=== PATIENT | male | born 1975 | race Caucasian/White ===

== ENCOUNTER 2016-12-17 03:46 | Emergency (ER) | payer OTHER ==
--- NOTE | 2016-12-17 05:43 | ED ORDER SUMMARY ---
..... Patient: ROBERTO SILVER OrderSheet [facility] VisitID: [id number] [place] [address] 41y, M Registration Date/Time: 12/17/2016 ORDER SHEET Weight: 149.6 kg (stated) Allergies: Naproxen, Soma, Robaxin GENERAL ORDERS: CBC w Diff Urgent (04:15 12/17/2016 Dennis Gómez) (Ack 4:16 CHagerty ER Semiconductor Processing Technician) (4:16 CHagerty ER Semiconductor Processing Technician) CMP Urgent (04:15 12/17/2016 Dennis Gómez) (Ack 4:16 CHagerty ER Semiconductor Processing Technician) (4:16 CHagerty ER Semiconductor Processing Technician) UA-Culture if indicated Urgent (04:15 12/17/2016 Dennis Gómez) (Ack 4:16 CHagerty ER Semiconductor Processing Technician) (4:16 CHagerty ER Semiconductor Processing Technician) Lipase Urgent (04:15 12/17/2016 Dennis Gómez) (Ack 4:16 CHagerty ER Semiconductor Processing Technician) (4:16 CHagerty ER Semiconductor Processing Technician) MEDICATION ORDERS: Imodium PO 2 mg (after zofran) (04:15 12/17/2016 Dennis Gómez) (Ack 4:21 JQuivey R.N.) (4:26 JQuivey R.N.) Tylenol PO 650 mg (NOW) (04:27 12/17/2016 JQuivey R.N. verbal order read back to Dennis Gómez) (4:27 JQuivey R.N.) IV FLUIDS: IV NS : initial bolus 1000 mL (1000 mL/hr), then none - for X1 (NOW) (04:14 12/17/2016 Dennis Gómez) (Ack 4:15 JQuivey R.N.) (4:20 JQuivey R.N.) Zofran IV 4 mg (NOW) (04:15 12/17/2016 Dennis Gómez) (Ack 4:15 JQuivey R.N.) (4:21 JQuivey R.N.) Morphine IV 4 mg (HIGH ALERT MEDICATION, NOW) (05:12 12/17/2016 Dennis Gómez) (5:19 Kalina Lowry) ORDER SHEET NOTES: [Electronically signed by Romel Ngo R.N. (05:54 12/17/2016)] [Electronically signed by John Rosenbaum Dr. (21:56 12/23/2016)] [Electronically locked/signed by Romel Ngo R.N. (05:54 12/17/2016)]
--- NOTE | 2016-12-17 05:43 | ED NURSING NOTES ---
Clinical Report - Nurs[facility] [address] [place] [address] 12/17/2016 3:47 Patient: ROBERTO SILVER TRIAGE Triage time 03:57. Acuity: LEVEL 3. Chief Complaint: ABDOMINAL PAIN, NAUSEA, VOMITING and DIARRHEA and FEVER. 04:04. Alert. --04:04 Romel Ngo R.N. 03:57 12/17/16. BP: 173/98. HR: 95. RR: 19. O2 saturation: 98% on room air. Temp: 98.9 F (oral). Pain level now: 03/22. --04:04 Romel Ngo R.N. Weight: 149.6 kg stated. Height/Length: 74 inches Per Patient. BMI: 42.4. --04:03 Romel Ngo R.N. Medications Hydrochlorothiazide Oral 20mg , daily. --04:02 Romel Ngo R.N. Medication/allergy information source: the patient. --04:04 Romel Ngo R.N. Allergies Naproxen. (Swelling) Soma. --04:02 Romel Ngo R.N. Robaxin. --05:47 Romel Ngo R.N. The following entry was struck and corrected by Romel Ngo R.N., 05:46 (12/17/16) Reason for correction - other(correction). <<STRICKEN ENTRY-- Naproxen. --04:02 Romel Ngo R.N. --END STRIKE>>. History Arrived by private vehicle. Historian: patient. Accompanied by family. Primary physician (Barb). Onset. (4 days ago). 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 PAST MEDICAL HX: Immunizations: up-to-date. SOCIAL HX: Current some days light tobacco smoker- less than 1/2 a pack per day (Chews). History of drug use: marijuana. (daily). No alcohol use. No recent travel. No infectious disease exposure. ABUSE ASSESSMENT: No report of abuse. FALL RISK ASSESSMENT: Fall risk assessment completed. No fall risk identified. NUTRITIONAL RISK ASSESSMENT: The nutritional risk assessment revealed no deficiencies. FUNCTIONAL ASSESSMENT: Functional assessment: no impairments noted. LEARNING NEEDS ASSESSMENT: The learning needs assessment revealed no barriers. SKIN INTEGRITY ASSESSMENT: Skin integrity risk assessment completed. No skin integrity risk identified. --04:04 Romel Ngo R.N. The patient has had a cough. ( Sinus pressure). --04:06 Romel Ngo R.N. PROBLEMS: Diverticulitis. Hypertension. Intervertebral Disc Disease. Low back pain. --04:03 Roeml Ngo R.N. ADDITIONAL SURGERIES: no known surgeries. Interventions ID band on patient. To treatment room. --04:04 Romel Ngo R.N. PHYSICAL ASSESSMENT 04:00. Ambulatory to room. Patient gowned. GENERAL / NEURO / PSYCH: Alert. Oriented X 4. HEENT: Mucous membranes are pink. RESPIRATORY: Respirations not labored. SKIN: Skin is warm and dry. --04:05 Romel Ngo R.N. NURSING PROGRESS NOTES 03:57. Patient ID band checked for patient name and birthdate: patient confirmed. Clean catch urine collected with return of yellow-colored clear urine; sample sent to lab for urinalysis. Specimen labeled in the presence of the patient. --04:00 Romel Ngo R.N. 04:00. Head of bed elevated. Two patient identifiers checked. Call light placed in reach. Bed placed in lowest position. Brakes of bed on. Patient ready for evaluation- chart flagged. --04:05 Romel Ngo R.N. 04:10 12/17/2016 Site #1 started via IV in the right hand with an 20g angiocath, with aseptic technique and good blood return; one attempt. Blood drawn: rainbow set. Labeled in the presence of the patient and sent to the lab. Saline lock flushed with 10 mL saline. --04:13 Romel Ngo R.N. 04:16 12/17/2016 Started bag #1 1000 mL IV Fluids IV NS (Saline); at 1000 mL/hr over 1 hour(s) via site #1 via IV pump. IV patency established. IV site checked: no pain, redness, or swelling. IV flushed thoroughly pre- and post-medication administration. --04:20 Romel Ngo R.N. 04:18 12/17/2016 Zofran (Ondansetron HCl) IVP 4 mg given over 2 minute(s) via site #1. Allergies verified and confirmed 5 rights. IV patency established. IV site checked: no pain, redness, or swelling. IV flushed thoroughly pre- and post-medication administration. --04:21 Romel Ngo R.N. 04:26 12/17/2016 Imodium (Loperamide HCl) PO 2 mg given. Allergies verified and confirmed 5 rights. --04:26 Romel Ngo R.N. 04:27 12/17/2016 Tylenol (Acetaminophen) PO 650 mg given. Allergies verified and confirmed 5 rights. --04:27 Romel Ngo R.N. 05:19 12/17/2016 Morphine IVP 4 mg given. via site #1. Allergies verified, confirmed 5 rights and sedative warning given to the patient. IV patency established. IV site checked: no pain, redness, or swelling. IV flushed thoroughly pre- and post-medication administration. --05:19 Kvng Matias R.N. 05:30 12/17/2016 IV Fluids IV NS Discontinued: bag #1 infused. Total amount infused: 1000 mL. IV patency established. IV site checked: no pain, redness, or swelling. IV flushed thoroughly. --05:49 Romel Ngo R.N. 05:52. The patient is calm and resting quietly. Overall patient status is improved- he states feels better. SKIN: Skin is warm and dry. Skin color within normal limits. --05:54 Romel Ngo R.N. DISPOSITION / DISCHARGE Departure time: 05:53. Condition at departure: stable. No learning barriers present. Discharge instructions provided and reviewed with the patient. Reviewed medication(s) side effects, precautions, dosing and course information. Prescription(s) given to the patient. Patient verbalized understanding. Written instructions provided in Ugandan. The patient was discharged home and accompanied by chapter relations administrator. He left the Emergency Department ambulatory and via private vehicle. Muffle Worker driving. FALL RISK ASSESSMENT: Fall risk assessment completed. No fall risk identified. --05:53 Romel Ngo R.N. 05:47 12/17/16. BP: 157/99. HR: 85. RR: 16. O2 saturation: 96% on room air. Pain level now: 11/22. --05:53 Romel Ngo R.N. 05:50 12/17/2016 Site #1 removed upon discharge. Catheter intact. Bandage applied. --05:54 Romel Ngo R.N. Locked/Released at 12/17/2016 5:55 by Romel Ngo R.N.
--- NOTE | 2016-12-17 05:43 | ED ORDER SUMMARY ---
..... Patient: ROBERTO SILVER OrderSheet [facility] VisitID: [id number] [place] [address] 41y, M Registration Date/Time: 12/17/2016 ORDER SHEET Weight: 149.6 kg (stated) Allergies: Naproxen, Soma, Robaxin GENERAL ORDERS: CBC w Diff Urgent (04:15 12/17/2016 Dennis Gómez) (Ack 4:16 CHagerty ER Genetics Physician) (4:16 CHagerty ER Genetics Physician) CMP Urgent (04:15 12/17/2016 Dennis Gómez) (Ack 4:16 CHagerty ER Genetics Physician) (4:16 CHagerty ER Genetics Physician) UA-Culture if indicated Urgent (04:15 12/17/2016 Dennis Gómez) (Ack 4:16 CHagerty ER Genetics Physician) (4:16 CHagerty ER Genetics Physician) Lipase Urgent (04:15 12/17/2016 Dennis Gómez) (Ack 4:16 CHagerty ER Genetics Physician) (4:16 CHagerty ER Genetics Physician) MEDICATION ORDERS: Imodium PO 2 mg (after zofran) (04:15 12/17/2016 Dennis Gómez) (Ack 4:21 JQuivey R.N.) (4:26 JQuivey R.N.) Tylenol PO 650 mg (NOW) (04:27 12/17/2016 JQuivey R.N. verbal order read back to Dennis Gómez) (4:27 JQuivey R.N.) IV FLUIDS: IV NS : initial bolus 1000 mL (1000 mL/hr), then none - for X1 (NOW) (04:14 12/17/2016 Dennis Gómez) (Ack 4:15 JQuivey R.N.) (4:20 JQuivey R.N.) Zofran IV 4 mg (NOW) (04:15 12/17/2016 Dennis Gómez) (Ack 4:15 JQuivey R.N.) (4:21 JQuivey R.N.) Morphine IV 4 mg (HIGH ALERT MEDICATION, NOW) (05:12 12/17/2016 Dennis Gómez) (5:19 Kalina Lowry) ORDER SHEET NOTES: [Electronically signed by Romel Ngo R.N. (05:54 12/17/2016)] [Electronically signed by John Rosenbaum Dr. (21:56 12/23/2016)] [Electronically locked/signed by Romel Ngo R.N. (05:54 12/17/2016)]
--- NOTE | 2016-12-17 05:43 | ED CLINICAL REPORT ---
Clinical Report - Physicians/[facility] [address] [place] [place] [address] 12/17/2016 3:47 Patient: ROBERTO SILVER Arrived- By private vehicle. Historian- patient. HISTORY OF PRESENT ILLNESS Chief Complaint: VOMITING and DIARRHEA. This started past 4 days and is still present (staying the same). It was abrupt in onset and has been intermittent but is not gone now. No recent travel. He has had nausea, vomiting and diarrhea. No black stools, bloody stools, abdominal pain, flank pain or history of possible bad food exposure. No known contact with a sick individual. Has not recently been camping or on antibiotics. The illness is described as moderate. Similar symptoms previously: None. Recent medical care: Not recently seen/assessed. REVIEW OF SYSTEMS The patient has had fever. No skin rash. All systems otherwise negative, except as recorded above. PAST HISTORY See nurses notes. Additional Surgeries: no known surgeries. Medications: Hydrochlorothiazide Oral 20mg , daily. Allergies: Naproxen. (Swelling) Robaxin. Soma. SOCIAL HISTORY Smoker- current status unknown. History of drug use: marijuana. No alcohol use. Is a local resident. FAMILY HISTORY (no family history of bowel problems). ADDITIONAL NOTES The nursing notes have been reviewed. PHYSICAL EXAM Vital Signs: 12/17/2016 03:57 BP: 173/98. HR: 95. RR: 19. O2 saturation: 98%. Temp: 98.9 F. Pain level now: 5/10. Hypertensive. Oxygen saturation normal. Appearance: Alert. Oriented X3. No acute distress. Eyes: Pupils equal, round and reactive to light. Eyes normal inspection. No scleral icterus. ENT: Ears normal. Nose normal. Pharynx normal. Neck: Normal inspection. Neck supple. CVS: Normal heart rate and rhythm. Heart sounds normal. Pulses normal. Respiratory: No respiratory distress. Breath sounds normal. No rales, rhonchi or wheezes. Abdomen: Soft and nontender. Abnormal bowel sounds: hyperactive. No organomegaly. No mass. Back: Normal inspection. Skin: Skin warm and dry. Normal skin color. No rash. Normal skin turgor. Extremities: Extremities exhibit normal ROM. No lower extremity edema. Neuro: Oriented X 3. No motor deficit. No sensory deficit. LABS, X-RAYS, AND EKG Laboratory Tests: UA-Culture if indicated: (MEAGHAN: 12/17/2016 04:00) ( MsgRcvd 12/17/2016 05:16) Final results Test Result Flag Units (Reference) URINE COLOR YELLOW URINE APPEARANCE CLEAR URINE GLUCOSE NEGATIVE (NEGATIVE) URINE BILIRUBIN NEGATIVE (NEGATIVE) URINE KETONE TRACE (NEGATIVE) URINE SPECIFIC GRAVITY 1.020 (1.010-1.030) URINE PH 6.0 (5.0-8.0) URINE PROTEIN NEGATIVE (NEGATIVE) URINE UROBILINOGEN 0.2 EU/dL (0.2-1.0) URINE NITRITE NEGATIVE (NEGATIVE) URINE BLOOD NEGATIVE (NEGATIVE) URINE LEUK ESTERASE NEGATIVE (NEGATIVE) URINE RBC 0-1 rbc/hpf (0-1) URINE WBC 0-1 wbc/hpf (0-1) URINE EPITHELIAL CELLS 0-1 EPI/hpf (0-5) URINE BACTERIA NONE SEEN (NONE SEEN) URINE COMMENT CULT NOT INDICATED URINE CULTURES ARE SET-UP BASED ON THE FOLLOWING CRITERIA:POSITIVE NITRITEPOSITIVE LEUKOCYTE ESTERASEGREATER THAN 10 WHITE BLOOD CELLSMODERATE (2+) OR GREATER BACTERIA CBC w Diff: (MEAGHAN: 12/17/2016 04:00) ( MsgRcvd 12/17/2016 04:49) Final results Test Result Flag Units (Reference) WHITE BLOOD COUNT 6.8 K/uL (4.5-11.5) RED BLOOD COUNT 5.45 M/uL (4.50-5.90) HEMOGLOBIN 16.3 gm/dL (13.5-17.5) HEMATOCRIT 48.1 % (41.0-53.0) MEAN CELL VOLUME 88 fL (80-100) MEAN CORPUSCULAR HGB 30 pg (26-34) MEAN CORPUSCULAR HGB CONC 34 g/dL (31-37) RED CELL DISTRIBUTION WIDTH 13.1 % (11.6-14.8) PLATELET COUNT 243 K/uL (150-400) NEUTROPHIL % 66.9 % (50-75) LYMPH % 17.1 L % (25-40) MONO % 15.3 H % (3-14) EOSINOPHIL % 0.4 % (0-4) BASOPHIL % 0.3 % (0-2) CMP: (MEAGHAN: 12/17/2016 04:00) ( MsgRcvd 12/17/2016 05:02) Final results Test Result Flag Units (Reference) GLUCOSE 108 mg/dL (70-110) BUN 12 mg/dL (7-18) CREATININE 1.0 mg/dL (0.6-1.3) Estimated GFR >60 mL/min Estimated GFR- >60 mL/min Note: Persistent reduction over 3 months in eGFR<60 mL/min/1.73 m2 defines CKD. Patients with eGFR values>=60 mL/min/1.73 m2 may also have CKD if evidence ofpersistent proteinuria. Additional information may be foundat www.kidney.org. SODIUM 137 mmol/L (136-145) POTASSIUM 3.6 mmol/L (3.5-5.1) CHLORIDE 100 mmol/L (98-107) CARBON DIOXIDE 24 mmol/L (21-32) CALCIUM 8.8 mg/dL (8.5-10.1) TOTAL PROTEIN 8.2 g/dL (6.4-8.2) ALBUMIN 4.0 g/dL (3.3-5.0) BILIRUBIN, TOTAL 1.1 H mg/dL (0.0-1.0) ALKALINE PHOSPHATASE 87 U/L (46-116) AST (SGOT) 39 H U/L (15-37) ALT (SGPT) 62 U/L (12-78) LIPASE 129 U/L (73-393) . PROGRESS AND PROCEDURES Course of Care: The patient is a pleasant and cooperative 41 yo male with no pertinent past medical history presenting for evaluation of n/v/d. Patient resting in bed, no acute distress. No significant risk factors for C. diff. Will evaluate patient with liver enzymes, UA, lytes, and CBC. Patient agreeable to the treatment and plan. Medication for symptoms provided. Work up shows patient with very mild elevation in bili. Reports he knows about this and is normal for him. No other findings. Patient without diarrhea while here. Unable to obtain stool sample. Patient with benign repeat examination. Do not feel imaging needed. Risk outweighs the benefits at this time given benign exam and normal lab workup. Discussed with patient work up, diagnosis, home care, follow up, and return precautions. All questions answered. Patient expressed understanding of these instructions and was agreeable to them. Disposition: Discharged. Condition: good. CLINICAL IMPRESSION Vomiting with nausea. Diarrhea (acute). Acute generalized abdominal pain. 12/17/2016 03:57 BP: 173/98. HR: 95. RR: 19. O2 saturation: 98%. Temp: 98.9 F. Pain level now: 03/22. Hypertensive. Oxygen saturation normal. Mild dehydration (acute). INSTRUCTIONS Warnings: GENERAL WARNINGS: Return or contact your physician immediately if your condition worsens or changes unexpectedly, if not improving as expected, or if other problems arise. SPECIFICALLY, return if you develop pain, fever, the inability to keep fluids down, blood in vomitus, blood in diarrhea, fainting or lightheadedness. Your Current Medications: CONTINUE TAKING THE FOLLOWING MEDICATIONS: Hydrochlorothiazide Oral : 20mg daily. Prescription Medications: Zofran (orally disintegrating tablets) 4 mg: take 1 orally every 8 hours as needed for nausea and vomiting. Dispense ten (10). No refill. Substitution is permissible. Motrin 600 mg tablets: take 1 tablet orally every 6 hours as needed for pain, stiffness or swelling. Dispense thirty (30). No refill. Substitution is permissible. OTC Medications: Imodium (available over the counter): take according to label instructions. Tylenol 500 mg (available over the counter): take 1 orally every 6 hours as needed for fever or pain. Dispense thirty (30). No refill. Substitution is permissible. Follow-up: Return to the emergency department as needed. Follow up with your doctor in three days. Reason for referral: recheck today's concerns. Summary of care provided to patient via paper. Screening today revealed the patient's blood pressure to be in the hypertensive range. Blood pressure screening was not performed during this visit because the patient has an active diagnosis of hypertension. The patient should follow up with a primary care provider for blood pressure management. Understanding of the discharge instructions verbalized by patient. Follow-up with: [facility], , , [address], , [place], [address] Follow up in three days. Reason for referral: recheck today's concerns if you do not have a primary care doctor, contact this office. Summary of care provided to patient via paper. (Electronically signed by John Rosenbaum Dr. 12/23/2016 21:56)
--- NOTE | 2016-12-17 05:43 | ED NURSING NOTES ---
Clinical Report - Nurses [facility] [address] [place] [address] 12/17/2016 3:47 Patient: ROBERTO SILVER TRIAGE Triage time 03:57. Acuity: LEVEL 3. Chief Complaint: ABDOMINAL PAIN, NAUSEA, VOMITING and DIARRHEA and FEVER. 04:04. Alert. --04:04 Romel Ngo R.N. 03:57 12/17/16. BP: 173/98. HR: 95. RR: 19. O2 saturation: 98% on room air. Temp: 98.9 F (oral). Pain level now: 03/22. --04:04 Romel Ngo R.N. Weight: 149.6 kg stated. Height/Length: 74 inches Per Patient. BMI: 42.4. --04:03 Romel Ngo R.N. Medications Hydrochlorothiazide Oral 20mg , daily. --04:02 Romel Ngo R.N. Medication/allergy information source: the patient. --04:04 Romel Ngo R.N. Allergies Naproxen. (Swelling) Soma. --04:02 Romel Ngo R.N. Robaxin. --05:47 Romel Ngo R.N. The following entry was struck and corrected by Romel Ngo R.N., 05:46 (12/17/16) Reason for correction - other(correction). <<STRICKEN ENTRY-- Naproxen. --04:02 Romel Ngo R.N. --END STRIKE>>. History Arrived by private vehicle. Historian: patient. Accompanied by family. Primary physician (Barb). Onset. (4 days ago). 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 PAST MEDICAL HX: Immunizations: up-to-date. SOCIAL HX: Current some days light tobacco smoker- less than 1/2 a pack per day (Chews). History of drug use: marijuana. (daily). No alcohol use. No recent travel. No infectious disease exposure. ABUSE ASSESSMENT: No report of abuse. FALL RISK ASSESSMENT: Fall risk assessment completed. No fall risk identified. NUTRITIONAL RISK ASSESSMENT: The nutritional risk assessment revealed no deficiencies. FUNCTIONAL ASSESSMENT: Functional assessment: no impairments noted. LEARNING NEEDS ASSESSMENT: The learning needs assessment revealed no barriers. SKIN INTEGRITY ASSESSMENT: Skin integrity risk assessment completed. No skin integrity risk identified. --04:04 Romel Ngo R.N. The patient has had a cough. ( Sinus pressure). --04:06 Romel Ngo R.N. PROBLEMS: Diverticulitis. Hypertension. Intervertebral Disc Disease. Low back pain. --04:03 Romel Ngo R.N. ADDITIONAL SURGERIES: no known surgeries. Interventions ID band on patient. To treatment room. --04:04 Romel Ngo R.N. PHYSICAL ASSESSMENT 04:00. Ambulatory to room. Patient gowned. GENERAL / NEURO / PSYCH: Alert. Oriented X 4. HEENT: Mucous membranes are pink. RESPIRATORY: Respirations not labored. SKIN: Skin is warm and dry. --04:05 Romel Ngo R.N. NURSING PROGRESS NOTES 03:57. Patient ID band checked for patient name and birthdate: patient confirmed. Clean catch urine collected with return of yellow-colored clear urine; sample sent to lab for urinalysis. Specimen labeled in the presence of the patient. --04:00 Romel Ngo R.N. 04:00. Head of bed elevated. Two patient identifiers checked. Call light placed in reach. Bed placed in lowest position. Brakes of bed on. Patient ready for evaluation- chart flagged. --04:05 Romel Ngo R.N. 04:10 12/17/2016 Site #1 started via IV in the right hand with an 20g angiocath, with aseptic technique and good blood return; one attempt. Blood drawn: rainbow set. Labeled in the presence of the patient and sent to the lab. Saline lock flushed with 10 mL saline. --04:13 Romel Ngo R.N. 04:16 12/17/2016 Started bag #1 1000 mL IV Fluids IV NS (Saline); at 1000 mL/hr over 1 hour(s) via site #1 via IV pump. IV patency established. IV site checked: no pain, redness, or swelling. IV flushed thoroughly pre- and post-medication administration. --04:20 Romel Ngo R.N. 04:18 12/17/2016 Zofran (Ondansetron HCl) IVP 4 mg given over 2 minute(s) via site #1. Allergies verified and confirmed 5 rights. IV patency established. IV site checked: no pain, redness, or swelling. IV flushed thoroughly pre- and post-medication administration. --04:21 Romel Ngo R.N. 04:26 12/17/2016 Imodium (Loperamide HCl) PO 2 mg given. Allergies verified and confirmed 5 rights. --04:26 Romel Ngo R.N. 04:27 12/17/2016 Tylenol (Acetaminophen) PO 650 mg given. Allergies verified and confirmed 5 rights. --04:27 Romel Ngo R.N. 05:19 12/17/2016 Morphine IVP 4 mg given. via site #1. Allergies verified, confirmed 5 rights and sedative warning given to the patient. IV patency established. IV site checked: no pain, redness, or swelling. IV flushed thoroughly pre- and post-medication administration. --05:19 Kvng Matias R.N. 05:30 12/17/2016 IV Fluids IV NS Discontinued: bag #1 infused. Total amount infused: 1000 mL. IV patency established. IV site checked: no pain, redness, or swelling. IV flushed thoroughly. --05:49 Romel Ngo R.N. 05:52. The patient is calm and resting quietly. Overall patient status is improved- he states feels better. SKIN: Skin is warm and dry. Skin color within normal limits. --05:54 Romel Ngo R.N. DISPOSITION / DISCHARGE Departure time: 05:53. Condition at departure: stable. No learning barriers present. Discharge instructions provided and reviewed with the patient. Reviewed medication(s) side effects, precautions, dosing and course information. Prescription(s) given to the patient. Patient verbalized understanding. Written instructions provided in Beninese. The patient was discharged home and accompanied by cage shift manager. He left the Emergency Department ambulatory and via private vehicle. Transmission And Coordination Engineer driving. FALL RISK ASSESSMENT: Fall risk assessment completed. No fall risk identified. --05:53 Romel Ngo R.N. 05:47 12/17/16. BP: 157/99. HR: 85. RR: 16. O2 saturation: 96% on room air. Pain level now: 11/22. --05:53 Romel Ngo R.N. 05:50 12/17/2016 Site #1 removed upon discharge. Catheter intact. Bandage applied. --05:54 Romel Ngo R.N. Locked/Released at 12/17/2016 5:55 by Romel Ngo R.N.
--- NOTE | 2016-12-23 21:56 | ED MED RECONCILIATION SUMMARY ---
Patient: ROBERTO SILVER Medication Reconciliation Report [facility] VisitID: [id number] [address] [place] [place] [address] 41y, M Registration Date/Time: 12/17/2016 Weight: 149.6 kg Height/Length: 74 in. BMI: 42.4 ALLERGIES: Naproxen, Robaxin, Soma The patient's Home Medications are listed below: CONTINUE TAKING THE FOLLOWING MEDICATIONS: Hydrochlorothiazide Oral 20mg , daily The source(s) of the original Home Medication information: patient The following Medications were given to the patient in the Emergency Department: IV NS IV Fluids bolus 0, then 1000 mL/hr, administered: 12/17/2016 4:16:00 AM Zofran [IVP] IVP 4 mg, administered: 12/17/2016 4:18:00 AM Imodium [PO] PO 2 mg, administered: 12/17/2016 4:26:00 AM Tylenol [PO] PO 650 mg, administered: 12/17/2016 4:27:00 AM Morphine [IVP] IVP 4 mg, administered: 12/17/2016 5:19:00 AM The following Medications were prescribed to the patient: Zofran (orally disintegrating tablets) 4 mg: take 1 orally every 8 hours as needed for nausea and vomiting. Dispense ten (10). No refill. Substitution is permissible. -- John Rosenbaum Dr. Imodium (available over the counter): take according to label instructions. -- John Rosenbaum Dr. Tylenol 500 mg (available over the counter): take 1 orally every 6 hours as needed for fever or pain. Dispense thirty (30). No refill. Substitution is permissible. -- John Rosenbaum Dr. Motrin 600 mg tablets: take 1 tablet orally every 6 hours as needed for pain, stiffness or swelling. Dispense thirty (30). No refill. Substitution is permissible. -- John Rosenbaum Dr.
--- NOTE | 2016-12-23 21:56 | ED MAR SUMMARY ---
..... Medication Administration Record [facility] [address] [place] [address] Patient: ROBERTO SILVER Visit ID: [id number] 41y, M Weight: 149.6 kg Height/Length: 74 in BMI: 42.4 ALLERGIES: Soma, Robaxin, Naproxen Start 04:16 12/17/2016 Romel Ngo R.N., Stop 05:30 12/17/2016 Romel Ngo R.N. Medication Administered: IV NS (SALINE), Dose: IV Fluids over 1 hour(s), Rate: 1000 mL/hr, Dispensed: 1000 mL bag, Site: #1 right hand. Medication Ordered: IV NS : initial bolus 1000 mL (1000 mL/hr), then none - for X1 (NOW). Given 04:18 12/17/2016 Romel Ngo R.N. Medication Administered: ZOFRAN [IVP] (ONDANSETRON HCL), Dose: 4 mg IVP over 2 minute(s), Site: #1 right hand. Medication Ordered: Zofran IV 4 mg (NOW). Given 04:26 12/17/2016 Romel Ngo R.N. Medication Administered: IMODIUM [PO] (LOPERAMIDE HCL), Dose: 2 mg PO. Medication Ordered: Imodium PO 2 mg (after zofran). Given 04:27 12/17/2016 Romel Ngo R.N. Medication Administered: TYLENOL [PO] (ACETAMINOPHEN), Dose: 650 mg PO. Medication Ordered: Tylenol PO 650 mg (NOW). Given 05:19 12/17/2016 Kvng Matias R.N. Medication Administered: MORPHINE [IVP], Dose: 4 mg IVP, Site: #1 right hand. Medication Ordered: Morphine IV 4 mg (HIGH ALERT MEDICATION, NOW).
--- NOTE | 2016-12-23 21:56 | ED MAR SUMMARY ---
..... Medication Administration Record [facility] [address] [place] [address] Patient: ROBERTO SILVER Visit ID: [id number] 41y, M Weight: 149.6 kg Height/Length: 74 in BMI: 42.4 ALLERGIES: Soma, Robaxin, Naproxen Start 04:16 12/17/2016 Romel Ngo R.N., Stop 05:30 12/17/2016 Romel Ngo R.N. Medication Administered: IV NS (SALINE), Dose: IV Fluids over 1 hour(s), Rate: 1000 mL/hr, Dispensed: 1000 mL bag, Site: #1 right hand. Medication Ordered: IV NS : initial bolus 1000 mL (1000 mL/hr), then none - for X1 (NOW). Given 04:18 12/17/2016 Romel Ngo R.N. Medication Administered: ZOFRAN [IVP] (ONDANSETRON HCL), Dose: 4 mg IVP over 2 minute(s), Site: #1 right hand. Medication Ordered: Zofran IV 4 mg (NOW). Given 04:26 12/17/2016 Romel Ngo R.N. Medication Administered: IMODIUM [PO] (LOPERAMIDE HCL), Dose: 2 mg PO. Medication Ordered: Imodium PO 2 mg (after zofran). Given 04:27 12/17/2016 Romel Ngo R.N. Medication Administered: TYLENOL [PO] (ACETAMINOPHEN), Dose: 650 mg PO. Medication Ordered: Tylenol PO 650 mg (NOW). Given 05:19 12/17/2016 Kvng Matias R.N. Medication Administered: MORPHINE [IVP], Dose: 4 mg IVP, Site: #1 right hand. Medication Ordered: Morphine IV 4 mg (HIGH ALERT MEDICATION, NOW).
--- NOTE | 2016-12-23 21:56 | ED MED RECONCILIATION SUMMARY ---
Patient: ROBERTO SILVER Medication Reconciliation Report [facility] VisitID: [id number] [address] [place] [place] [address] 41y, M Registration Date/Time: 12/17/2016 Weight: 149.6 kg Height/Length: 74 in. BMI: 42.4 ALLERGIES: Naproxen, Robaxin, Soma The patient's Home Medications are listed below: CONTINUE TAKING THE FOLLOWING MEDICATIONS: Hydrochlorothiazide Oral 20mg , daily The source(s) of the original Home Medication information: patient The following Medications were given to the patient in the Emergency Department: IV NS IV Fluids bolus 0, then 1000 mL/hr, administered: 12/17/2016 4:16:00 AM Zofran [IVP] IVP 4 mg, administered: 12/17/2016 4:18:00 AM Imodium [PO] PO 2 mg, administered: 12/17/2016 4:26:00 AM Tylenol [PO] PO 650 mg, administered: 12/17/2016 4:27:00 AM Morphine [IVP] IVP 4 mg, administered: 12/17/2016 5:19:00 AM The following Medications were prescribed to the patient: Zofran (orally disintegrating tablets) 4 mg: take 1 orally every 8 hours as needed for nausea and vomiting. Dispense ten (10). No refill. Substitution is permissible. -- John Rosenbaum Dr. Imodium (available over the counter): take according to label instructions. -- John Rosenbaum Dr. Tylenol 500 mg (available over the counter): take 1 orally every 6 hours as needed for fever or pain. Dispense thirty (30). No refill. Substitution is permissible. -- John Rosenbaum Dr. Motrin 600 mg tablets: take 1 tablet orally every 6 hours as needed for pain, stiffness or swelling. Dispense thirty (30). No refill. Substitution is permissible. -- John Rosenbaum Dr.
--- NOTE | 2016-12-23 21:56 | ED DISCHARGE INSTRUCTIONS ---
Patient: ROBERTO SILVER General Instructions [facility] VisitID: [id number] [address] [place] [address] 41y, M Registration Date/Time: 12/17/2016 Vomiting with nausea. Diarrhea (acute). Acute generalized abdominal pain. 12/17/2016 03:57 BP: 173/98. HR: 95. RR: 19. O2 saturation: 98%. Temp: 98.9 F. Pain level now: 5/10. Hypertensive. Oxygen saturation normal. Mild dehydration (acute). INSTRUCTIONS Warnings: GENERAL WARNINGS: Return or contact your physician immediately if your condition worsens or changes unexpectedly, if not improving as expected, or if other problems arise. SPECIFICALLY, return if you develop pain, fever, the inability to keep fluids down, blood in vomitus, blood in diarrhea, fainting or lightheadedness. Your Current Medications: CONTINUE TAKING THE FOLLOWING MEDICATIONS: Hydrochlorothiazide Oral : 20mg daily. Prescription Medications: Zofran (orally disintegrating tablets) 4 mg: take 1 orally every 8 hours as needed for nausea and vomiting. Dispense ten (10). No refill. Substitution is permissible. Motrin 600 mg tablets: take 1 tablet orally every 6 hours as needed for pain, stiffness or swelling. Dispense thirty (30). No refill. Substitution is permissible. OTC Medications: Imodium (available over the counter): take according to label instructions. Tylenol 500 mg (available over the counter): take 1 orally every 6 hours as needed for fever or pain. Dispense thirty (30). No refill. Substitution is permissible. Follow-up: Return to the emergency department as needed. Follow up with your doctor in three days. Reason for referral: recheck today's concerns. Summary of care provided to patient via paper. Screening today revealed the patient's blood pressure to be in the hypertensive range. Blood pressure screening was not performed during this visit because the patient has an active diagnosis of hypertension. The patient should follow up with a primary care provider for blood pressure management. Understanding of the discharge instructions verbalized by patient. Follow-up with: [facility], , , [address], [place], [id number] Follow up in three days. Reason for referral: recheck today's concerns if you do not have a primary care doctor, contact this office. Summary of care provided to patient via paper. ADDITIONAL INFORMATION Vomiting [6Yr-Adult] Vomiting is a common symptom that may be due to different causes. These include gastroenteritis ("stomach flu"), food poisoning and gastritis. There are other more serious causes of vomiting which may be hard to diagnose early in the illness. Therefore, it is important to watch for the warning signs listed below. The main danger from repeated vomiting is dehydration. This is due to excess loss of water and minerals from the body. When this occurs, body fluids must be replaced. Home Care: If symptoms are severe, rest at home for the next 24 hours. You may use acetaminophen (Tylenol) or ibuprofen (Motrin, Advil) to control fever, unless another medicine was prescribed. [NOTE : If you have chronic liver or kidney disease or ever had a stomach ulcer or GI bleeding, talk with your doctor before using these medicines.] (Aspirin should never be used in anyone under 18 years of age who is ill with a fever. It may cause severe liver damage.) Avoid tobacco and alcohol use, which may worsen your symptoms. If medicines for vomiting were prescribed, take as directed. Once vomiting stops, then follow these guidelines: During The First 12-24 Hours follow the diet below: FRUIT JUICES: Apple, grape juice, clear fruit drinks, and electrolyte replacement drinks. BEVERAGES: Soft drinks without caffeine; mineral water (plain or flavored), decaffeinated tea and coffee. SOUPS: Clear broth, consomm and bouillon DESSERTS: Plain gelatin, popsicles and fruit juice bars. As you feel better, you may add 6-8 ounces of yogurt per day. During The Next 24 Hours you may add the following to the above: Hot cereal, plain toast, bread, rolls, crackers Plain noodles, rice, mashed potatoes, chicken noodle or rice soup Unsweetened canned fruit (avoid pineapple), bananas Limit caffeine and chocolate. No spices or seasonings except salt. During The Next 24 Hours Gradually resume a normal diet, as you feel better and your symptoms lessen. Follow Up with your doctor as advised if you are not improving over the next 2-3 days. Get Prompt Medical Attention if any of the following occur: Constant right-sided lower abdominal pain or increasing general abdominal pain Continued vomiting (unable to keep liquids down) for 24 hours Frequent diarrhea (more than 5 times a day); blood (red or black color) or mucus in diarrhea Reduced urine output or extreme thirst Weakness, dizziness or fainting Unusually drowsy or confused Fever of 100.4F (38C) oral or higher, not better with fever medication Yellow color of the eyes or skin Diarrhea, Uncertain Cause (Adult, Report Pending) Diarrhea has several possible causes. Commonstomach fluis caused by a virus. Food poisoning, bacteria or parasites are other causes for diarrhea. Only diarrhea caused by bacteria or parasites requires treatment with an antibiotic. Diarrhea from a virus or food poisoning improves with simple home treatment. A stool sample is needed to make the diagnosis of an infection with bacteria or parasites. Up to three stool specimens may be required to diagnose This may take up to two days to get the result. It may be necessary to wait until the stool test is complete to make the diagnosis and select the best antibiotic to prescribe. Home Care: If symptoms are severe, rest at home for the next 24 hours or until you are feeling better. You may use acetaminophen (Tylenol) or ibuprofen (Motrin, Advil) to control fever, unless another medicine was prescribed. [NOTE: If you have chronic liver or kidney disease or ever had a stomach ulcer or GI bleeding, talk with your doctor before using these medicines.] (Aspirin should never be used in anyone under 18 years of age who is ill with a fever. It may cause severe liver damage.) Avoid tobacco, caffeine and alcohol, which may worsen your symptoms. If anti-diarrhea medicine was prescribed, take this only as directed. Sometimes anti-diarrhea medicine can make your condition worse if the cause is an infectious diarrhea. Therefore, anti-diarrhea medicine should not be taken for this condition unless advised by your doctor. During The First 12-24 Hours follow the diet below: BEVERAGES: Sport drinks like Gatorade, soft drinks without caffeine; disha whit, mineral water (plain or flavored), decaffeinated tea and coffee. SOUPS: Clear broth, consomm and bouillon DESSERTS: Plain gelatin (Jell-O), popsicles and fruit juice bars. During The Next 24 Hours you may add the following to the above: Hot cereal, plain toast, bread, rolls, crackers Plain noodles, rice, mashed potatoes, chicken noodle or rice soup Unsweetened canned fruit (avoid pineapple), bananas Limit fat intake to less than 15 grams per day by avoiding margarine, butter, oils, mayonnaise, sauces, gravies, fried foods, peanut butter, meat, poultry and fish. Limit fiber; avoid raw or cooked vegetables, fresh fruits (except bananas) and bran cereals. Limit caffeine and chocolate. No spices or seasonings except salt. During The Next 24 Hours Gradually resume a normal diet, as you feel better and your symptoms lessen. Follow Up with your doctor or as advised if you are not improving over the next two days. If you were asked to bring a specimen from home, bring the sample on the day of collection. You may call in 2 days (or as directed) for the results. Get Prompt Medical Attention if any of the following occur: Increasing abdominal pain or constant lower right abdominal pain Continued vomiting (unable to keep liquids down) Frequent diarrhea (more than 5 times a day) Blood in vomit or stool (black or red color) Reduced oral intake Dark urine, reduced urine output Weakness, dizziness, fainting Drowsiness, confusion, stiff neck or seizure Fever of 100.4F (38C) oral or higher, not better with fever medication New rash Abdominal Pain,Uncertain Cause [Male] Based on your visit today, the exact cause of your abdominalpain is not clear. Your exam and tests do not indicate a dangerous cause at this time. However, the signs of a serious problem may take more time to appear. Although your evaluation was reassuring today, sometimes early in the course of many conditions, exam and lab tests can appear normal. Therefore, it is important for you to watch for any new symptoms or worsening of your condition. Causes It may not be obvious what caused your symptoms. Pay attention to things that do seem to make your symptoms worse or better and discuss this with your doctor when you follow up. Diagnosis The evaluation of abdominal pain in the emergency department may onlyrequire an exam by the doctor or it may include blood, urine or imaging studies, depending on many factors. Sometimes exams and tests can identify a cause but in many cases, a clear cause is not found. Further testing at follow up visits may help to suggest a clear diagnosis. Home Care Rest as much as possible until your next exam. Try to avoid any medications (unless otherwise directed by your doctor), foods, activities, or other factors that you may have contributed to your symptoms. Try to eat foods that you know that you have tolerated well in the past. Certain diets may be recommended for some conditions that cause abdominal pain. However, since the cause of your symptoms may not be clear, discuss your diet more with your primary care provider or specialist for further recommendations. Eating several small meals per day as opposed to 2 or 3 larger meals may help. Monitor closely for anything that may make your symptoms worse or better. Pay close attention to symptoms below that may indicate worsening of your condition. Follow Up and Precautions See your doctoras instructed or sooneror if your symptoms are not improving.In some cases, you may need more testing. When to Seek Medical Attention Contact your doctor or see medical attention ifany of the following occur: Pain is becoming worse You are unable to take your medications due to excessive vomiting Swelling of the abdomen Fever of 100.4F (38C) or higher, or as directed by your health care provider Blood in vomit or bowel movements (dark red or black color) Jaundice (yellow color of eyes and skin) New onset of weakness, dizziness or fainting New onset of chest, arm, back, neck or jaw pain Dehydration (Adult) Dehydration occurs when your body loses too much fluid. This may be the result of vomiting a lot or from diarrhea,sweating a lot, or a high fever. It may also happen if you dont drink enough fluid when youre sick. Misuse of diuretics (water pills) can also be a cause. Symptoms include thirst and feeling dizzy, weak, fatigued, or very drowsy. The diet described below is usually enough to treat most cases. Sometimes you may needmedicine. Home Care Follow these guidelines for home care: Drink at least 12 8-ounce glasses of fluid every day to overcome the dehydration. Fluid may include water; orange juice; lemonade; apple, grape, and cranberry juice; clear fruit drinks; electrolyte replacement and sports drinks; and teas and coffee without caffeine. If you have been diagnosed with a kidney disease, ask your doctor how much and what types of fluids you should drink to prevent dehydration. If you have kidney disease, drinking too much fluid can cause it build up in the your body and be dangerous to your health. If you have fever, muscle aching, or headache from a viral syndrome, you may useacetaminophen or ibuprofen, unless another medicine was prescribed for this.If you have chronic liver or kidney disease or ever had a stomach ulcer or GI bleeding, talk with your doctor before using these medicines. Don't take aspirin if you are younger than 18 and are ill with a fever.Aspirin raises the chance forsevere liver injury. Follow-up care Follow up with your health care provider if you don't get better in the next 24 to 48 hours. When to seek medical care Get prompt medical attention if any of theseoccur: Continued vomiting (cant keep liquids down) Frequent diarrhea (more than 5 times a day); blood (red or black color) or mucus in diarrhea Blood in vomit or stool Swollen abdomen or increasing abdominal pain Weakness, dizziness, or fainting Unusually drowsy or confused Reduced urine output or extreme thirst Fever of 100.4 F (38 C) oral or higher that does not get better with fever medication Ondansetron Oral disintegrating tablet What is this medicine? ONDANSETRON (on DIRK se harriett) is used to treat nausea and vomiting caused by chemotherapy. It is also used to prevent or treat nausea and vomiting after surgery. How should I use this medicine? These tablets are made to dissolve in the mouth. Do not try to push the tablet through the foil backing. With dry hands, peel away the foil backing and gently remove the tablet. Place the tablet in the mouth and allow it to dissolve, then swallow. While you may take these tablets with water, it is not necessary to do so. Talk to your supervisor electronics assembly regarding the use of this medicine in children. Special care may be needed. What side effects may I notice from receiving this medicine? Side effects that you should report to your doctor or health care trainer as soon as possible: allergic reactions like skin rash, itching or hives, swelling of the face, lips, or tongue breathing problems dizziness fast or irregular heartbeat feeling faint or lightheaded, falls fever and chills swelling of the hands and feet tightness in the chest Side effects that usually do not require medical attention (report to your doctor or health care trainer if they continue or are bothersome): constipation or diarrhea headache What may interact with this medicine? Do not take this medicine with any of the following medications: -apomorphine -cisapride -dofetilide -dronedarone -pimozide -thioridazine -ziprasidone This medicine may also interact with the following medications: -carbamazepine -phenytoin -rifampicin -tramadol -other medicines that prolong the QT interval (cause an abnormal heart rhythm) What if I miss a dose? If you miss a dose, take it as soon as you can. If it is almost time for your next dose, take only that dose. Do not take double or extra doses. Where should I keep my medicine? Keep out of the reach of children. Store between 2 and 30 degrees C (36 and 86 degrees F). Throw away any unused medicine after the expiration date. What should I tell my health care provider before I take this medicine? They need to know if you have any of these conditions: heart disease history of irregular heartbeat liver disease low levels of magnesium or potassium in the blood an unusual or allergic reaction to ondansetron, granisetron, other medicines, foods, dyes, or preservatives or trying to get breast-feeding What should I watch for while using this medicine? Check with your doctor or health care trainer as soon as you can if you have any sign of an allergic reaction. Ibuprofen Oral tablet What is this medicine? IBUPROFEN (eye BYOO proe fen) is a non-steroidal anti-inflammatory drug (NSAID). It is used for dental pain, fever, headaches or migraines, osteoarthritis, rheumatoid arthritis, or painful monthly periods. It can also relieve minor aches and pains caused by a cold, flu, or sore throat. How should I use this medicine? Take this medicine by mouth with a glass of water. Follow the directions on the prescription label. Take this medicine with food if your stomach gets upset. Try to not lie down for at least 10 minutes after you take the medicine. Take your medicine at regular intervals. Do not take your medicine more often than directed. A special MedGuide will be given to you by the pharmacist with each prescription and refill. Be sure to read this information carefully each time. Talk to your supervisor electronics assembly regarding the use of this medicine in children. Special care may be needed. What side effects may I notice from receiving this medicine? Side effects that you should report to your doctor or health care trainer as soon as possible: allergic reactions like skin rash, itching or hives, swelling of the face, lips, or tongue black or bloody stools, blood in the urine or in vomit breathing problems changes in vision chest pain general ill feeling or flu-like symptoms nausea or vomiting redness, blistering, peeling or loosening of the skin, including inside the mouth slurred speech or weakness on one side of the body stomach pain unexplained weight gain or swelling unusually weak or tired yellowing of eyes or skin Side effects that usually do not require medical attention (report to your doctor or health care trainer if they continue or are bothersome): constipation or diarrhea dizziness gas or heartburn stomach upset What may interact with this medicine? Do not take this medicine with any of the following medications: cidofovir ketorolac methotrexate pemetrexed This medicine may also interact with the following medications: alcohol aspirin diuretics lithium other drugs for inflammation like prednisone warfarin What if I miss a dose? If you miss a dose, take it as soon as you can. If it is almost time for your next dose, take only that dose. Do not take double or extra doses. Where should I keep my medicine? Keep out of the reach of children. Store at room temperature between 15 and 30 degrees C (59 and 86 degrees F). Keep container tightly closed. Throw away any unused medicine after the expiration date. What should I tell my health care provider before I take this medicine? They need to know if you have any of these conditions: asthma cigarette smoker drink more than 3 alcohol containing drinks a day heart disease or circulation problems such as heart failure or leg edema (fluid retention) high blood pressure kidney disease liver disease stomach bleeding or ulcers an unusual or allergic reaction to ibuprofen, aspirin, other NSAIDS, other medicines, foods, dyes, or preservatives or trying to get breast-feeding What should I watch for while using this medicine? Tell your doctor or healthcare professional if your symptoms do not start to get better or if they get worse. This medicine does not prevent heart attack or stroke. In fact, this medicine may increase the chance of a heart attack or stroke. The chance may increase with longer use of this medicine and in people who have heart disease. If you take aspirin to prevent heart attack or stroke, talk with your doctor or health care trainer. Do not take other medicines that contain aspirin, ibuprofen, or naproxen with this medicine. Side effects such as stomach upset, nausea, or ulcers may be more likely to occur. Many medicines available without a prescription should not be taken with this medicine. This medicine can cause ulcers and bleeding in the stomach and intestines at any time during treatment. Ulcers and bleeding can happen without warning symptoms and can cause . To reduce your risk, do not smoke cigarettes or drink alcohol while you are taking this medicine. You may get drowsy or dizzy. Do not drive, use machinery, or do anything that needs mental alertness until you know how this medicine affects you. Do not stand or sit up quickly, especially if you are an older patient. This reduces the risk of dizzy or fainting spells. This medicine can cause you to bleed more easily. Try to avoid damage to your teeth and gums when you brush or floss your teeth. Acetaminophen Oral tablet What is this medicine? ACETAMINOPHEN (a set a GABI boyd fen) is a pain reliever. It is used to treat mild pain and fever. How should I use this medicine? Take this medicine by mouth with a glass of water. Follow the directions on the package or prescription label. Take your medicine at regular intervals. Do not take your medicine more often than directed. Talk to your supervisor electronics assembly regarding the use of this medicine in children. While this drug may be prescribed for children as young as 6 years of age for selected conditions, precautions do apply. What side effects may I notice from receiving this medicine? Side effects that you should report to your doctor or health care trainer as soon as possible: allergic reactions like skin rash, itching or hives, swelling of the face, lips, or tongue breathing problems fever or sore throat redness, blistering, peeling or loosening of the skin, including inside the mouth trouble passing urine or change in the amount of urine unusual bleeding or bruising unusually weak or tired yellowing of the eyes or skin Side effects that usually do not require medical attention (report to your doctor or health care trainer if they continue or are bothersome): headache nausea, stomach upset What may interact with this medicine? alcohol imatinib isoniazid other medicines with acetaminophen What if I miss a dose? If you miss a dose, take it as soon as you can. If it is almost time for your next dose, take only that dose. Do not take double or extra doses. Where should I keep my medicine? Keep out of reach of children. Store at room temperature between 20 and 25 degrees C (68 and 77 degrees F). Protect from moisture and heat. Throw away any unused medicine after the expiration date. What should I tell my health care provider before I take this medicine? They need to know if you have any of these conditions: if you frequently drink alcohol containing drinks liver disease an unusual or allergic reaction to acetaminophen, other medicines, foods, dyes or preservatives or trying to get breast-feeding What should I watch for while using this medicine? Tell your doctor or health care trainer if the pain lasts more than 10 days (5 days for children), if it gets worse, or if there is a new or different kind of pain. Also, check with your doctor if a fever lasts for more than 3 days. Do not take other medicines that contain acetaminophen with this medicine. Always read labels carefully. If you have questions, ask your doctor or pharmacist. If you take too much acetaminophen get medical help right away. Too much acetaminophen can be very dangerous and cause liver damage. Even if you do not have symptoms, it is important to get help right away. You have been given the following additional information: Vomiting (6Y-Adult) Diarrhea, Unk Cause (Adult) Report Pendg Abdominal Pain, Unknown Cause, (Male) Dehydration (Adult) Ondansetron Oral disintegrating tablet Ibuprofen Oral tablet Acetaminophen Oral tablet (Electronically signed by John Rosenbaum Dr. 12/23/2016 21:56)
== END 2016-12-17 05:53 | disposition home or self-care (01) ==
LOC: ED SRH 03:46
DX: R11.2 Nausea with vomiting, unspecified (principal); E86.0 Dehydration; R19.7 Diarrhea, unspecified; R10.84 Generalized abdominal pain; Z79.899 Other long term (current) drug therapy; Z88.8 Allergy status to other drugs, medicaments and biological substances
CPT/HCPCS: 90004; 90100; 92235; 95059